=== PATIENT | female | born 1945 | race African-American/Black ===

== ENCOUNTER 2018-03-10 06:03 | Inpatient (IN) | payer MEDICARE, MEDICAID ==
[~2018-03-10] VITALS: Ht 162.6 cm; Wt 95.5 kg
[2018-03-10 06:46] LABS: HEMATOCRIT 44.1 % (37.0-47.0); HEMOGLOBIN 13.5 g/dl (12.0-16.0); IMMATURE GRANULOCYTES 0.7 % (0.0-1.0); MEAN CELL VOLUME 90.9 fL CALC (80.0-100.0); MEAN CORPUSCULAR HGB 27.8 pG CALC (26.0-32.0); MEAN CORPUSCULAR HGB CONC 30.6 g/L CALC (32.0-36.0); NEUT# 6.67 thou/uL (2.00-7.15); RED BLOOD COUNT 4.85 mill/uL (4.20-5.60); RED CELL DISTRI WIDTH 15.5 % (11.5-15.5)
[2018-03-10 06:47] LABS: URINE BILIRUBIN - DIPSTICK NEGATIVE (NEGATIVE); URINE BLOOD DIPSTICK NEGATIVE (NEGATIVE); URINE COLOR YELLOW; URINE GLUCOSE - DIPSTICK NEGATIVE (NEGATIVE); URINE KETONE TRACE mg/dL (NEGATIVE); URINE LEUK ESTERASE TRACE (NEGATIVE); URINE NITRITE - DIPSTICK NEGATIVE (Negative); URINE PROTEIN - DIPSTICK NEGATIVE (NEG-TRACE); URINE UROBILINOGEN - DIPSTICK 0.2 E.U./dL (0.2)
[2018-03-10 06:49] LABS: URINE CLARITY CLEAR
[2018-03-10 06:57] LABS: ALBUMIN 3.6 g/dL (3.2-5.0); ALKALINE PHOSPHATASE 105 u/l (38-126); AMYLASE 249 u/l (30-110); ANION GAP 14 (6-22 (CALC)); BILIRUBIN, TOTAL 0.3 mg/dL (0.0-1.4); BUN 17 mg/dL (8-23); BUN/CREATININE RATIO 20 (12-20 (CALC)); CARBON DIOXIDE 29 mmol/l (22-30); CHLORIDE 106 mmol/l (95-108); CREATININE 0.8 mg/dL (0.5-1.0); GFR > 60 ML/MIN (>=60 (CALC)); GFR FOR AFR.AMER. > 60 ML/MIN (>=60 (CALC)); POTASSIUM 4.4 mmol/l (3.5-5.1); SGOT/AST 12 u/l (9-36); SGPT/ALT 32 u/l (11-66); SODIUM 146 mmol/l (137-146); TOTAL PROTEIN 6.6 g/dL (6.3-8.2)
[2018-03-10 07:08] LABS: LIPASE 2149 u/l (23-300)
[2018-03-10 07:09] LABS: MYOGLOBIN 19 ng/mL (0 - 62)
[2018-03-10] MEDS ORDERED: CELEBREX100 M1 PO (09:10)
[2018-03-10] MEDS ORDERED: SIMVASTATIN20 MG PO (09:10)
[2018-03-10] MEDS ORDERED: METFORMIN500 MG PO (09:11)
[2018-03-10] MEDS ORDERED: MAXZIDE-2537.5 MG/TA PO (09:11)
[2018-03-10] MEDS ORDERED: DOXAZOSIN1 MG PO (09:11)
[2018-03-10] MEDS ORDERED: OMEPRAZOLE10 MG PO (09:12)
[2018-03-10] MEDS ORDERED: DILTIAZEM CD300 MG PO (09:12)
[2018-03-10] MEDS ORDERED: PREDNISONE5 MG PO (09:12)
[2018-03-10] MEDS ORDERED: ADVAIR DISKU IN (09:13)
[2018-03-10] MEDS ORDERED: LOSARTAN POT50 MG PO (09:13)
[2018-03-10] MEDS ORDERED: PROAIR HFA108 MCG/AC IN (09:14)
[2018-03-10 10:31] VITALS: BP 193/93
[2018-03-10 15:22] VITALS: BP 156/80
[2018-03-10 19:35] VITALS: BP 145/79
[2018-03-10 23:52] VITALS: BP 117/67
[2018-03-11] VITALS (7 sets, daily range): BP systolic 129–187; BP diastolic 64–86
[2018-03-11 05:46] LABS: HEMATOCRIT 39.4 % (37.0-47.0); HEMOGLOBIN 11.9 g/dl (12.0-16.0); IMMATURE GRANULOCYTES 0.7 % (0.0-1.0); MEAN CELL VOLUME 92.9 fL CALC (80.0-100.0); MEAN CORPUSCULAR HGB 28.1 pG CALC (26.0-32.0); MEAN CORPUSCULAR HGB CONC 30.2 g/L CALC (32.0-36.0); NEUT# 5.57 thou/uL (2.00-7.15); RED BLOOD COUNT 4.24 mill/uL (4.20-5.60); RED CELL DISTRI WIDTH 15.8 % (11.5-15.5)
[2018-03-11 05:52] LABS: ANION GAP 13 (6-22 (CALC)); BUN 10 mg/dL (8-23); BUN/CREATININE RATIO 15 (12-20 (CALC)); CALCULATED LDLCHOLESTEROL 77 mg/dL (62-129 (CALC)); CARBON DIOXIDE 27 mmol/l (22-30); CHLORIDE 107 mmol/l (95-108); CHOLESTEROL HDL RATIO 2.4 (<4.4 (CALC)); CREATININE 0.7 mg/dL (0.5-1.0); GFR > 60 ML/MIN (>=60 (CALC)); GFR FOR AFR.AMER. > 60 ML/MIN (>=60 (CALC)); HDL CHOLESTEROL 67 mg/dL (>=40); LIPASE 864 u/l (23-300); MAGNESIUM 2.2 mg/dL (1.6-2.3); POTASSIUM 4.9 mmol/l (3.5-5.1); SODIUM 142 mmol/l (137-146); TOTAL CHOLESTEROL 163 mg/dl (0-199); TOTAL TRIGLYCERIDES 90 mg/dl (30-149); VLDL CHOLESTROL 18 mg/dl (0-48 (CALC))
[2018-03-12] VITALS (9 sets, daily range): BP systolic 140–179; BP diastolic 64–110
[2018-03-12 05:06] LABS: HEMATOCRIT 41.6 % (37.0-47.0); HEMOGLOBIN 12.7 g/dl (12.0-16.0); IMMATURE GRANULOCYTES 0.6 % (0.0-1.0); MEAN CELL VOLUME 91.2 fL CALC (80.0-100.0); MEAN CORPUSCULAR HGB 27.9 pG CALC (26.0-32.0); MEAN CORPUSCULAR HGB CONC 30.5 g/L CALC (32.0-36.0); NEUT# 6.38 thou/uL (2.00-7.15); RED BLOOD COUNT 4.56 mill/uL (4.20-5.60); RED CELL DISTRI WIDTH 15.6 % (11.5-15.5)
[2018-03-12 05:16] LABS: ANION GAP 14 (6-22 (CALC)); BUN 8 mg/dL (8-23); BUN/CREATININE RATIO 14 (12-20 (CALC)); CARBON DIOXIDE 25 mmol/l (22-30); CHLORIDE 105 mmol/l (95-108); CREATININE 0.6 mg/dL (0.5-1.0); GFR > 60 ML/MIN (>=60 (CALC)); GFR FOR AFR.AMER. > 60 ML/MIN (>=60 (CALC)); LIPASE 1247 u/l (23-300); POTASSIUM 4.4 mmol/l (3.5-5.1); SODIUM 141 mmol/l (137-146)
[2018-03-13 04:36] VITALS: BP 151/81
[2018-03-13 09:14] VITALS: BP 148/68
[2018-03-13 11:15] VITALS: BP 155/83
[2018-03-13] MEDS ORDERED: SUCRALFATE1 GM/10 ML PO (13:36)
[2018-03-13] MEDS ORDERED: TRAMADOL HCL50 MG PO (13:40)
== END 2018-03-13 16:32 | disposition home or self-care (01) | DRG 440 ==
LOC: ED 06:03 → ED-I 09:00 → ED 09:10 → MS2 09:11
PROVIDERS: Emergency Medicine; Nurse Practitioner Family; ADMIT Internal Medicine; ATTEND Internal Medicine
DX: K85.90 Acute pancreatitis without necrosis or infection, unspecified (principal); J44.9 Chronic obstructive pulmonary disease, unspecified; E11.9 Type 2 diabetes mellitus without complications; I16.0 Hypertensive urgency; I10 Essential (primary) hypertension; J45.909 Unspecified asthma, uncomplicated; K21.9 Gastro-esophageal reflux disease without esophagitis; K59.09 Other constipation; E78.5 Hyperlipidemia, unspecified; E66.9 Obesity, unspecified; Z87.891 Personal history of nicotine dependence; Z79.84 Long term (current) use of oral hypoglycemic drugs; Z68.36 Body mass index [BMI] 36.0-36.9, adult
CPT/HCPCS: Q9967; S0164

== ENCOUNTER 2018-11-23 14:28 | Observation (INO) | payer MEDICARE, MEDICAID ==
[~2018-11-23] VITALS: Ht 162.6 cm; Wt 94.6 kg
[~2018-11-23 14:28] MED LIST: ADVAIR DISKU IN; CELEBREX100 M1 PO; DILTIAZEM CD300 MG PO; DOXAZOSIN1 MG PO; LOSARTAN POT50 MG PO; MAXZIDE-2537.5 MG/TA PO; METFORMIN500 MG PO; OMEPRAZOLE10 MG PO; PREDNISONE5 MG PO; PROAIR HFA108 MCG/AC IN; SIMVASTATIN20 MG PO; SUCRALFATE1 GM/10 ML PO; TRAMADOL HCL50 MG PO
[2018-11-23] MEDS ORDERED: PREDNISONE5 MG PO (14:46)
[2018-11-23] MEDS ORDERED: JANUMET1 TAB PO (14:47)
[2018-11-23] MEDS ORDERED: HYDRALAZINE25 MG PO (14:50)
[2018-11-23 15:30] LABS: HEMATOCRIT 37.9 % (37.0-47.0); HEMOGLOBIN 11.5 g/dl (12.0-16.0); IMMATURE GRANULOCYTES 0.5 % (0.0-5.0); MEAN CORPUSCULAR HGB 27.3 pG CALC (26.0-32.0); MEAN CORPUSCULAR HGB CONC 30.3 g/L CALC (32.0-36.0); NEUT# 7.64 thou/uL (2.00-7.15); RED BLOOD COUNT 4.21 mill/uL (4.20-5.60); RED CELL DISTRI WIDTH 14.6 % (11.5-15.5)
[2018-11-23 15:47] LABS: ALBUMIN 3.8 g/dL (3.2-5.0); ALKALINE PHOSPHATASE 102 u/l (38-126); ANION GAP 12 (6-22 (CALC)); BILIRUBIN, TOTAL 0.3 mg/dL (0.0-1.4); BUN 18 mg/dL (8-23); BUN/CREATININE RATIO 29 (12-20 (CALC)); CARBON DIOXIDE 23 mmol/l (22-30); CHLORIDE 109 mmol/l (95-108); CREATININE 0.6 mg/dL (0.5-1.0); GFR > 60 ML/MIN (>=60 (CALC)); GFR FOR AFR.AMER. > 60 ML/MIN (>=60 (CALC)); LIPASE 186 u/l (23-300); POTASSIUM 4.3 mmol/l (3.5-5.1); SODIUM 141 mmol/l (137-146); TOTAL PROTEIN 6.8 g/dL (6.3-8.2)
[2018-11-23 15:57] LABS: SGOT/AST 33 u/l (9-36)
[2018-11-23 17:19] LABS: URINE BILIRUBIN - DIPSTICK NEGATIVE (NEGATIVE); URINE BLOOD DIPSTICK NEGATIVE (NEGATIVE); URINE COLOR YELLOW; URINE GLUCOSE - DIPSTICK NEGATIVE (NEGATIVE); URINE KETONE NEGATIVE (NEGATIVE); URINE LEUK ESTERASE NEGATIVE (NEGATIVE); URINE NITRITE - DIPSTICK NEGATIVE (Negative); URINE PROTEIN - DIPSTICK NEGATIVE (NEG-TRACE); URINE SPECIFIC GRAVITY 1.015; URINE UROBILINOGEN - DIPSTICK 0.2 E.U./dL (0.2)
[2018-11-23 20:59] VITALS: BP 132/68
[2018-11-24] VITALS (9 sets, daily range): BP systolic 121–173; BP diastolic 72–91
[2018-11-24 02:45] LABS: HEMOGLOBIN 11.3 g/dl (12.0-16.0); IMMATURE GRANULOCYTES 1.1 % (0.0-5.0); MEAN CELL VOLUME 89.2 fL CALC (80.0-100.0); MEAN CORPUSCULAR HGB 27.2 pG CALC (26.0-32.0); MEAN CORPUSCULAR HGB CONC 30.5 g/L CALC (32.0-36.0); NEUT# 5.74 thou/uL (2.00-7.15); RED BLOOD COUNT 4.15 mill/uL (4.20-5.60); RED CELL DISTRI WIDTH 14.6 % (11.5-15.5)
[2018-11-24 03:00] LABS: ALBUMIN 3.4 g/dL (3.2-5.0); ALKALINE PHOSPHATASE 74 u/l (38-126); AMYLASE 65 u/l (30-110); ANION GAP 11 (6-22 (CALC)); BILIRUBIN, TOTAL 0.4 mg/dL (0.0-1.4); BUN 17 mg/dL (8-23); BUN/CREATININE RATIO 26 (12-20 (CALC)); CARBON DIOXIDE 25 mmol/l (22-30); CHLORIDE 110 mmol/l (95-108); CREATININE 0.6 mg/dL (0.5-1.0); GFR > 60 ML/MIN (>=60 (CALC)); GFR FOR AFR.AMER. > 60 ML/MIN (>=60 (CALC)); LIPASE 187 u/l (23-300); POTASSIUM 4.2 mmol/l (3.5-5.1); SGOT/AST 17 u/l (9-36); SODIUM 142 mmol/l (137-146); TOTAL PROTEIN 5.9 g/dL (6.3-8.2)
[2018-11-25 04:30] VITALS: BP 143/81
[2018-11-25 04:51] LABS: HEMATOCRIT 37.1 % (37.0-47.0); HEMOGLOBIN 11.5 g/dl (12.0-16.0); IMMATURE GRANULOCYTES 0.4 % (0.0-5.0); MEAN CELL VOLUME 89.2 fL CALC (80.0-100.0); MEAN CORPUSCULAR HGB 27.6 pG CALC (26.0-32.0); NEUT# 4.88 thou/uL (2.00-7.15); RED BLOOD COUNT 4.16 mill/uL (4.20-5.60); RED CELL DISTRI WIDTH 14.6 % (11.5-15.5)
[2018-11-25 05:16] LABS: ALBUMIN 3.4 g/dL (3.2-5.0); ALKALINE PHOSPHATASE 60 u/l (38-126); ANION GAP 12 (6-22 (CALC)); BILIRUBIN, TOTAL 0.4 mg/dL (0.0-1.4); BUN 16 mg/dL (8-23); BUN/CREATININE RATIO 22 (12-20 (CALC)); CARBON DIOXIDE 26 mmol/l (22-30); CHLORIDE 106 mmol/l (95-108); CREATININE 0.7 mg/dL (0.5-1.0); GFR > 60 ML/MIN (>=60 (CALC)); GFR FOR AFR.AMER. > 60 ML/MIN (>=60 (CALC)); MAGNESIUM 1.9 mg/dL (1.6-2.3); POTASSIUM 4.2 mmol/l (3.5-5.1); SGOT/AST 13 u/l (9-36); SODIUM 140 mmol/l (137-146); TOTAL PROTEIN 5.9 g/dL (6.3-8.2)
[2018-11-25 07:35] VITALS: BP 158/82
[2018-11-25 11:56] VITALS: BP 117/66
[2018-11-25 15:32] VITALS: BP 110/58
== END 2018-11-25 18:05 | disposition home or self-care (01) ==
LOC: ED 14:28 → ED-I 14:45 → ED 14:45 → ED-I 18:06 → ED 18:17 → MS2 18:18
PROVIDERS: Emergency Medicine; ADMIT Internal Medicine Nephrology; ATTEND Internal Medicine Nephrology
DX: I25.118 Atherosclerotic heart disease of native coronary artery with other forms of angina pectoris (principal); E11.9 Type 2 diabetes mellitus without complications; I11.9 Hypertensive heart disease without heart failure; J45.909 Unspecified asthma, uncomplicated; K21.9 Gastro-esophageal reflux disease without esophagitis; M19.90 Unspecified osteoarthritis, unspecified site; E78.5 Hyperlipidemia, unspecified; E66.9 Obesity, unspecified; J44.9 Chronic obstructive pulmonary disease, unspecified; F41.9 Anxiety disorder, unspecified; Z68.35 Body mass index [BMI] 35.0-35.9, adult; Z87.891 Personal history of nicotine dependence; R07.9 Chest pain, unspecified; R06.02 Shortness of breath
CPT/HCPCS: J1650

== ENCOUNTER → 2018-12-19 | Outpatient (REF) | payer MEDICARE, MEDICAID ==
[~2018-12-19] MED LIST changes: +HYDRALAZINE25 MG PO; +JANUMET1 TAB PO
== END | disposition home or self-care (01) ==
LOC: LAB 07:24
PROVIDERS: ATTEND Internal Medicine
DX: E11.22 Type 2 diabetes mellitus with diabetic chronic kidney disease (principal)

== ENCOUNTER 2019-04-05 21:11 | Inpatient (IN) | payer MEDICARE, MEDICAID ==
[~2019-04-05] VITALS: Ht 162.6 cm; Wt 99.0 kg
[2019-04-05 22:43] LABS: IMMATURE GRANULOCYTES 0.6 % (0.0-5.0); MEAN CELL VOLUME 85.1 fL CALC (80.0-100.0); MEAN CORPUSCULAR HGB 25.2 pG CALC (26.0-32.0); MEAN CORPUSCULAR HGB CONC 29.6 g/L CALC (32.0-36.0); NEUT# 6.17 thou/uL (2.00-7.15); RED BLOOD COUNT 4.76 mill/uL (4.20-5.60); RED CELL DISTRI WIDTH 16.5 % (11.5-15.5)
[2019-04-05 23:14] LABS: HEMATOCRIT 40.5 % (37.0-47.0)
[2019-04-05 23:16] LABS: URINE BILIRUBIN - DIPSTICK NEGATIVE (NEGATIVE); URINE BLOOD DIPSTICK NEGATIVE (NEGATIVE); URINE COLOR YELLOW; URINE GLUCOSE - DIPSTICK NEGATIVE (NEGATIVE); URINE KETONE NEGATIVE (NEGATIVE); URINE LEUK ESTERASE NEGATIVE (NEGATIVE); URINE NITRITE - DIPSTICK NEGATIVE (Negative); URINE PROTEIN - DIPSTICK NEGATIVE (NEG-TRACE); URINE UROBILINOGEN - DIPSTICK 0.2 E.U./dL (0.2)
[2019-04-05 23:36] LABS: ALBUMIN 3.8 g/dL (3.2-5.0); AMYLASE 224 u/l (30-110); ANION GAP 13 (6-22 (CALC)); BILIRUBIN, TOTAL 0.3 mg/dL (0.0-1.4); BUN 17 mg/dL (8-23); BUN/CREATININE RATIO 21 (12-20 (CALC)); CARBON DIOXIDE 25 mmol/l (22-30); CHLORIDE 108 mmol/l (95-108); CREATININE 0.8 mg/dL (0.5-1.0); GFR > 60 ML/MIN (>=60 (CALC)); GFR FOR AFR.AMER. > 60 ML/MIN (>=60 (CALC)); LIPASE 1406 u/l (23-300); POTASSIUM 4.2 mmol/l (3.5-5.1); SGOT/AST 19 u/l (9-36); SODIUM 142 mmol/l (137-146); TOTAL PROTEIN 6.8 g/dL (6.3-8.2)
[2019-04-05 23:39] LABS: ALKALINE PHOSPHATASE 185 u/l (38-126)
[2019-04-05 23:47] LABS: MYOGLOBIN 23 ng/mL (0 - 62)
[2019-04-06 01:08] VITALS: BP 169/90
[2019-04-06 04:37] VITALS: BP 127/62
[2019-04-06 05:50] LABS: ALBUMIN 3.1 g/dL (3.2-5.0); ALKALINE PHOSPHATASE 130 u/l (38-126); ANION GAP 11 (6-22 (CALC)); BILIRUBIN, TOTAL 0.3 mg/dL (0.0-1.4); BUN 16 mg/dL (8-23); BUN/CREATININE RATIO 24 (12-20 (CALC)); CARBON DIOXIDE 26 mmol/l (22-30); CHLORIDE 108 mmol/l (95-108); CREATININE 0.7 mg/dL (0.5-1.0); GFR > 60 ML/MIN (>=60 (CALC)); GFR FOR AFR.AMER. > 60 ML/MIN (>=60 (CALC)); POTASSIUM 4.6 mmol/l (3.5-5.1); SGOT/AST 17 u/l (9-36); SODIUM 140 mmol/l (137-146); TOTAL PROTEIN 5.9 g/dL (6.3-8.2)
[2019-04-06 08:00] VITALS: BP 129/66
[2019-04-06 15:00] VITALS: BP 159/84
[2019-04-06 18:11] VITALS: BP 176/85
[2019-04-06 19:30] VITALS: BP 159/87
[2019-04-07] VITALS (9 sets, daily range): BP systolic 130–191; BP diastolic 80–93
[2019-04-07 05:43] LABS: HEMATOCRIT 42.1 % (37.0-47.0); HEMOGLOBIN 12.5 g/dl (12.0-16.0); IMMATURE GRANULOCYTES 0.3 % (0.0-5.0); MEAN CELL VOLUME 86.1 fL CALC (80.0-100.0); MEAN CORPUSCULAR HGB 25.6 pG CALC (26.0-32.0); MEAN CORPUSCULAR HGB CONC 29.7 g/L CALC (32.0-36.0); NEUT# 5.04 thou/uL (2.00-7.15); RED BLOOD COUNT 4.89 mill/uL (4.20-5.60); RED CELL DISTRI WIDTH 16.4 % (11.5-15.5)
[2019-04-07 06:12] LABS: ALBUMIN 3.4 g/dL (3.2-5.0); ALKALINE PHOSPHATASE 94 u/l (38-126); AMYLASE 110 u/l (30-110); ANION GAP 11 (6-22 (CALC)); BILIRUBIN, TOTAL 0.4 mg/dL (0.0-1.4); BUN 12 mg/dL (8-23); BUN/CREATININE RATIO 17 (12-20 (CALC)); CARBON DIOXIDE 31 mmol/l (22-30); CHLORIDE 105 mmol/l (95-108); CREATININE 0.7 mg/dL (0.5-1.0); GFR > 60 ML/MIN (>=60 (CALC)); GFR FOR AFR.AMER. > 60 ML/MIN (>=60 (CALC)); LIPASE 440 u/l (23-300); POTASSIUM 4.9 mmol/l (3.5-5.1); SGOT/AST 17 u/l (9-36); SODIUM 141 mmol/l (137-146)
[2019-04-08 00:32] VITALS: BP 168/75
[2019-04-08 02:29] VITALS: BP 143/61
[2019-04-08 05:01] VITALS: BP 133/67
[2019-04-08 05:23] LABS: HEMATOCRIT 42.7 % (37.0-47.0); HEMOGLOBIN 12.9 g/dl (12.0-16.0); IMMATURE GRANULOCYTES 0.5 % (0.0-5.0); MEAN CELL VOLUME 84.1 fL CALC (80.0-100.0); MEAN CORPUSCULAR HGB 25.4 pG CALC (26.0-32.0); MEAN CORPUSCULAR HGB CONC 30.2 g/L CALC (32.0-36.0); NEUT# 6.05 thou/uL (2.00-7.15); RED BLOOD COUNT 5.08 mill/uL (4.20-5.60); RED CELL DISTRI WIDTH 16.4 % (11.5-15.5)
[2019-04-08 05:25] LABS: ALBUMIN 3.5 g/dL (3.2-5.0); ALKALINE PHOSPHATASE 96 u/l (38-126); AMYLASE 102 u/l (30-110); ANION GAP 12 (6-22 (CALC)); BUN 11 mg/dL (8-23); BUN/CREATININE RATIO 19 (12-20 (CALC)); CARBON DIOXIDE 29 mmol/l (22-30); CHLORIDE 103 mmol/l (95-108); CREATININE 0.6 mg/dL (0.5-1.0); GFR > 60 ML/MIN (>=60 (CALC)); GFR FOR AFR.AMER. > 60 ML/MIN (>=60 (CALC)); LIPASE 450 u/l (23-300); MAGNESIUM 1.9 mg/dL (1.6-2.3); POTASSIUM 4.4 mmol/l (3.5-5.1); SGOT/AST 18 u/l (9-36); SODIUM 140 mmol/l (137-146); TOTAL PROTEIN 6.3 g/dL (6.3-8.2)
[2019-04-08 05:26] LABS: BILIRUBIN, TOTAL 0.6 mg/dL (0.0-1.4)
[2019-04-08 07:53] VITALS: BP 136/79
[2019-04-08 11:00] VITALS: BP 161/79
[2019-04-08] MEDS ORDERED: DOXYCYC MONO100 M2 PO (13:10)
[2019-04-08] MEDS ORDERED: METFORMIN500 MG PO (13:14)
== END 2019-04-08 18:24 | disposition home or self-care (01) | DRG 439 ==
LOC: ED 21:11 → ED-I 23:55 → ED 04-06 00:03 → MS2 04-06 00:04
PROVIDERS: Emergency Medicine; Internal Medicine Nephrology; ADMIT Internal Medicine; ATTEND Internal Medicine
DX: K85.30 Drug induced acute pancreatitis without necrosis or infection (principal); J44.0 Chronic obstructive pulmonary disease with (acute) lower respiratory infection; J20.9 Acute bronchitis, unspecified; T38.3X5A Adverse effect of insulin and oral hypoglycemic [antidiabetic] drugs, initial encounter; I10 Essential (primary) hypertension; E11.9 Type 2 diabetes mellitus without complications; E78.5 Hyperlipidemia, unspecified; M19.90 Unspecified osteoarthritis, unspecified site; K59.00 Constipation, unspecified; F41.9 Anxiety disorder, unspecified; K21.9 Gastro-esophageal reflux disease without esophagitis; R74.8 Abnormal levels of other serum enzymes; Z79.84 Long term (current) use of oral hypoglycemic drugs; Z79.899 Other long term (current) drug therapy; Z87.891 Personal history of nicotine dependence; E11.22 Type 2 diabetes mellitus with diabetic chronic kidney disease
CPT/HCPCS: J1650

== ENCOUNTER 2019-08-21 10:09 | Observation (INO) | payer MEDICARE, MEDICAID ==
[~2019-08-21] VITALS: Ht 162.6 cm; Wt 96.2 kg
[~2019-08-21 10:09] MED LIST changes: +DOXYCYC MONO100 M2 PO
[2019-08-21 11:01] LABS: HEMATOCRIT 42.3 % (37.0-47.0); HEMOGLOBIN 12.8 g/dl (12.0-16.0); IMMATURE GRANULOCYTES 0.4 % (0.0-5.0); MEAN CELL VOLUME 85.6 fL CALC (80.0-100.0); MEAN CORPUSCULAR HGB 25.9 pG CALC (26.0-32.0); MEAN CORPUSCULAR HGB CONC 30.3 g/L CALC (32.0-36.0); NEUT# 7.04 thou/uL (2.00-7.15); RED BLOOD COUNT 4.94 mill/uL (4.20-5.60); RED CELL DISTRI WIDTH 16.5 % (11.5-15.5)
[2019-08-21 11:39] LABS: ALBUMIN 3.7 g/dL (3.2-5.0); ALKALINE PHOSPHATASE 127 u/l (38-126); AMYLASE 79 u/l (30-110); ANION GAP 12 (6-22 (CALC)); BILIRUBIN, TOTAL 0.3 mg/dL (0.0-1.4); BUN 17 mg/dL (8-23); BUN/CREATININE RATIO 24 (12-20 (CALC)); CARBON DIOXIDE 24 mmol/l (22-30); CHLORIDE 108 mmol/l (95-108); CREATININE 0.7 mg/dL (0.5-1.0); GFR > 60 ML/MIN (>=60 (CALC)); GFR FOR AFR.AMER. > 60 ML/MIN (>=60 (CALC)); LIPASE 145 u/l (23-300); POTASSIUM 4.2 mmol/l (3.5-5.1); SODIUM 141 mmol/l (137-146); TOTAL PROTEIN 6.8 g/dL (6.3-8.2)
[2019-08-21 11:40] LABS: URINE BILIRUBIN - DIPSTICK NEGATIVE (NEGATIVE); URINE BLOOD DIPSTICK NEGATIVE (NEGATIVE); URINE COLOR YELLOW; URINE GLUCOSE - DIPSTICK NEGATIVE (NEGATIVE); URINE KETONE NEGATIVE (NEGATIVE); URINE LEUK ESTERASE TRACE (NEGATIVE); URINE NITRITE - DIPSTICK NEGATIVE (Negative); URINE PH 5.5 (4.5-8.0); URINE PROTEIN - DIPSTICK NEGATIVE (NEG-TRACE); URINE UROBILINOGEN - DIPSTICK 0.2 E.U./dL (0.2)
[2019-08-21 11:41] LABS: SGOT/AST 41 u/l (9-36)
[2019-08-21 11:51] LABS: MYOGLOBIN 21 ng/mL (0 - 62)
[2019-08-21 12:55] VITALS: BP 191/95
[2019-08-21 13:35] VITALS: BP 191/95
[2019-08-21 14:40] VITALS: BP 161/72
[2019-08-21] MEDS ORDERED: METFORMIN500 MG PO (16:53)
[2019-08-21] MEDS ORDERED: CARDIZEM CD240 MG PO (18:20)
[2019-08-21 18:42] VITALS: BP 150/83
[2019-08-22] VITALS: BP 143/86
[2019-08-22 04:35] VITALS: BP 163/78
[2019-08-22 06:32] LABS: CHOLESTEROL HDL RATIO 2.2 (<4.4 (CALC))
[2019-08-22 07:54] VITALS: BP 166/75
[2019-08-22 11:03] VITALS: BP 172/77
[2019-08-22 14:35] VITALS: BP 156/74
[2019-08-22] MEDS ORDERED: IBUPROFEN600 MG PO (15:32)
== END 2019-08-22 16:17 | disposition home or self-care (01) ==
LOC: ED 10:09 → ED-I 12:10 → ED 12:24 → MS2 12:25
PROVIDERS: Emergency Medicine; Nurse Practitioner Family; ADMIT Internal Medicine; ATTEND Internal Medicine
DX: M94.0 Chondrocostal junction syndrome [Tietze] (principal); I10 Essential (primary) hypertension; E11.9 Type 2 diabetes mellitus without complications; M19.90 Unspecified osteoarthritis, unspecified site; J43.9 Emphysema, unspecified; E78.5 Hyperlipidemia, unspecified; Z79.52 Long term (current) use of systemic steroids; Z87.891 Personal history of nicotine dependence; Z79.84 Long term (current) use of oral hypoglycemic drugs; R07.9 Chest pain, unspecified

== ENCOUNTER 2019-12-05 05:18 | Inpatient (IN) | payer MEDICARE, MEDICAID ==
[~2019-12-05] VITALS: Ht 162.6 cm; Wt 98.4 kg
[~2019-12-05 05:18] MED LIST changes: +CARDIZEM CD240 MG PO; +IBUPROFEN600 MG PO
[2019-12-05 06:23] LABS: HEMATOCRIT 43.6 % (37.0-47.0); IMMATURE GRANULOCYTES 0.4 % (0.0-5.0); MEAN CORPUSCULAR HGB 25.3 pG CALC (26.0-32.0); MEAN CORPUSCULAR HGB CONC 29.8 g/L CALC (32.0-36.0); NEUT# 5.38 thou/uL (2.00-7.15); RED BLOOD COUNT 5.13 mill/uL (4.20-5.60); RED CELL DISTRI WIDTH 17.3 % (11.5-15.5)
[2019-12-05 06:39] LABS: ALBUMIN 3.7 g/dL (3.2-5.0); ALKALINE PHOSPHATASE 119 u/l (38-126); AMYLASE 230 u/l (30-110); ANION GAP 11 (6-22 (CALC)); BILIRUBIN, TOTAL 0.4 mg/dL (0.0-1.4); BUN 17 mg/dL (8-23); BUN/CREATININE RATIO 23 (12-20 (CALC)); CARBON DIOXIDE 25 mmol/l (22-30); CHLORIDE 109 mmol/l (95-108); CREATININE 0.7 mg/dL (0.5-1.0); GFR > 60 ML/MIN (>=60 (CALC)); GFR FOR AFR.AMER. > 60 ML/MIN (>=60 (CALC)); LIPASE 1529 u/l (23-300); POTASSIUM 4.1 mmol/l (3.5-5.1); SGOT/AST 28 u/l (9-36); SODIUM 141 mmol/l (137-146); TOTAL PROTEIN 6.9 g/dL (6.3-8.2)
[2019-12-05] MEDS ORDERED: ADULT ASPIRIN R81 MG PO (07:20)
[2019-12-05] MEDS ORDERED: ATORVASTATIN CA10 MG PO (07:20)
[2019-12-05] MEDS ORDERED: LORATADINE10 M1 PO (07:22)
[2019-12-05] MEDS ORDERED: ALLERGY NA50 MCG/ACT NAB (07:27)
[2019-12-05] MEDS ORDERED: ALBUTEROL SUL0.083 % IN (08:20)
[2019-12-05 08:50] VITALS: BP 162/85
[2019-12-05 13:57] LABS: URINE BILIRUBIN - DIPSTICK NEGATIVE (NEGATIVE); URINE BLOOD DIPSTICK NEGATIVE (NEGATIVE); URINE COLOR YELLOW; URINE GLUCOSE - DIPSTICK NEGATIVE (NEGATIVE); URINE KETONE NEGATIVE (NEGATIVE); URINE LEUK ESTERASE TRACE (NEGATIVE); URINE PH 5.5 (4.5-8.0); URINE PROTEIN - DIPSTICK NEGATIVE (NEG-TRACE); URINE UROBILINOGEN - DIPSTICK 0.2 E.U./dL (0.2)
[2019-12-05 14:08] LABS: AMYLASE 160 u/l (30-110); LIPASE 944 u/l (23-300)
[2019-12-05 14:32] LABS: URINE NITRITE - DIPSTICK POSITIVE (Negative)
[2019-12-05 14:40] LABS: URINE BACTERIA MANY hpf; URINE SQUAMOUS EPITHELIAL CELL FEW EPI/hpf (0-FEW)
[2019-12-05 16:11] VITALS: BP 162/93
[2019-12-05 19:15] VITALS: BP 160/68
[2019-12-06 03:50] VITALS: BP 152/80
[2019-12-06 08:45] VITALS: BP 165/74
[2019-12-06 14:18] LABS: ANION GAP 10 (6-22 (CALC)); BUN 8 mg/dL (8-23); BUN/CREATININE RATIO 15 (12-20 (CALC)); CARBON DIOXIDE 22 mmol/l (22-30); CHLORIDE 111 mmol/l (95-108); CREATININE 0.5 mg/dL (0.5-1.0); GFR > 60 ML/MIN (>=60 (CALC)); GFR FOR AFR.AMER. > 60 ML/MIN (>=60 (CALC)); LIPASE 646 u/l (23-300); POTASSIUM 4.9 mmol/l (3.5-5.1); SODIUM 138 mmol/l (137-146)
[2019-12-06 16:00] VITALS: BP 158/91
[2019-12-06 18:50] VITALS: BP 179/88
[2019-12-06 22:34] VITALS: BP 183/97
[2019-12-06 23:20] VITALS: BP 183/97
[2019-12-07] VITALS (7 sets, daily range): BP systolic 154–195; BP diastolic 58–89
[2019-12-07 05:41] LABS: HEMATOCRIT 42.7 % (37.0-47.0); MEAN CELL VOLUME 84.7 fL CALC (80.0-100.0); MEAN CORPUSCULAR HGB 25.8 pG CALC (26.0-32.0); MEAN CORPUSCULAR HGB CONC 30.4 g/L CALC (32.0-36.0); RED BLOOD COUNT 5.04 mill/uL (4.20-5.60); RED CELL DISTRI WIDTH 17.5 % (11.5-15.5)
[2019-12-07 05:54] LABS: ANION GAP 14 (6-22 (CALC)); BUN 6 mg/dL (8-23); BUN/CREATININE RATIO 12 (12-20 (CALC)); CARBON DIOXIDE 22 mmol/l (22-30); CHLORIDE 105 mmol/l (95-108); CREATININE 0.5 mg/dL (0.5-1.0); GFR > 60 ML/MIN (>=60 (CALC)); GFR FOR AFR.AMER. > 60 ML/MIN (>=60 (CALC)); MAGNESIUM 1.8 mg/dL (1.6-2.3); POTASSIUM 4.3 mmol/l (3.5-5.1); SODIUM 137 mmol/l (137-146)
[2019-12-08 04:36] VITALS: BP 104/72
[2019-12-08 08:00] VITALS: BP 139/83
[2019-12-08] MEDS ORDERED: ZITHROMAX250 MG PO (12:08)
[2019-12-08] MEDS ORDERED: KEFLEX500 MG PO (12:11)
== END 2019-12-08 18:33 | disposition home or self-care (01) | DRG 637 ==
LOC: ED 05:18 → ED-I 07:03 → ED 07:14 → MS2 07:15
PROVIDERS: Family Medicine; Nurse Practitioner Family; ADMIT Internal Medicine; ATTEND Internal Medicine
PROC: 3E02340 Introduction of Influenza Vaccine into Muscle, Percutaneous Approach (ICD-10-PCS; principal; 2019-12-06)
PROC: 3E0234Z Introduction of Serum, Toxoid and Vaccine into Muscle, Percutaneous Approach (ICD-10-PCS; 2019-12-06)
DX: E11.69 Type 2 diabetes mellitus with other specified complication (principal); K85.90 Acute pancreatitis without necrosis or infection, unspecified; K85.80 Other acute pancreatitis without necrosis or infection; N39.0 Urinary tract infection, site not specified; J44.0 Chronic obstructive pulmonary disease with (acute) lower respiratory infection; J20.9 Acute bronchitis, unspecified; I10 Essential (primary) hypertension; E78.5 Hyperlipidemia, unspecified; R32 Unspecified urinary incontinence; K21.9 Gastro-esophageal reflux disease without esophagitis; B96.20 Unspecified Escherichia coli [E. coli] as the cause of diseases classified elsewhere; Z79.84 Long term (current) use of oral hypoglycemic drugs; Z23 Encounter for immunization; Z87.891 Personal history of nicotine dependence
CPT/HCPCS: G0378; Q9967; S0164

== ENCOUNTER 2019-12-19 14:37 | Inpatient (IN) | payer MEDICARE, MEDICAID ==
[~2019-12-19] VITALS: Ht 162.6 cm; Wt 96.0 kg
[~2019-12-19 14:37] MED LIST changes: +ADULT ASPIRIN R81 MG PO; +ALBUTEROL SUL0.083 % IN; +ALLERGY NA50 MCG/ACT NAB; +ATORVASTATIN CA10 MG PO; +KEFLEX500 MG PO; +LORATADINE10 M1 PO; +ZITHROMAX250 MG PO
--- NOTE | 2019-12-19 14:44 | NUR ---
PT TO ROOM VIA WHEELCHAIR FOR BEDSIDE TRIAGE.
[2019-12-19 15:35] LABS: HEMATOCRIT 44.6 % (37.0-47.0); HEMOGLOBIN 13.5 g/dl (12.0-16.0); IMMATURE GRANULOCYTES 0.4 % (0.0-5.0); MEAN CELL VOLUME 84.6 fL CALC (80.0-100.0); MEAN CORPUSCULAR HGB 25.6 pG CALC (26.0-32.0); MEAN CORPUSCULAR HGB CONC 30.3 g/L CALC (32.0-36.0); NEUT# 5.52 thou/uL (2.00-7.15); RED BLOOD COUNT 5.27 mill/uL (4.20-5.60); RED CELL DISTRI WIDTH 17.4 % (11.5-15.5)
[2019-12-19 15:46] LABS: ALKALINE PHOSPHATASE 100 u/l (38-126); AMYLASE 182 u/l (30-110); BUN 16 mg/dL (8-23); BUN/CREATININE RATIO 22 (12-20 (CALC)); CHLORIDE 105 mmol/l (95-108); CREATININE 0.7 mg/dL (0.5-1.0); GFR > 60 ML/MIN (>=60 (CALC)); GFR FOR AFR.AMER. > 60 ML/MIN (>=60 (CALC)); LIPASE 1823 u/l (23-300); POTASSIUM 4.6 mmol/l (3.5-5.1); SGOT/AST 31 u/l (9-36); SODIUM 139 mmol/l (137-146); TOTAL PROTEIN 7.4 g/dL (6.3-8.2)
--- NOTE | 2019-12-19 15:46 | NUR ---
AFTER MULTIPLE ATTEMPTS OF IV, IV ESTABLISHED AND PAIN MEDICATIONS GIVEN.
[2019-12-19 16:10] LABS: ANION GAP 12 (6-22 (CALC)); BILIRUBIN, TOTAL 0.8 mg/dL (0.0-1.4); CARBON DIOXIDE 27 mmol/l (22-30)
--- NOTE | 2019-12-19 16:51 | NUR ---
PT BACK AFROM XRAY, W/C TO RESTROOM AND URINE SPECIMEN OBTAINED. PT STATES PAIN IS ALL GONE AND THINKS IF SHE JUST WENT HOME WITH PAIN MEDICATIONS SHE WOULD BE FINE. NOTIFIED.
[2019-12-19 17:26] LABS: URINE BILIRUBIN - DIPSTICK SMALL (NEGATIVE); URINE BLOOD DIPSTICK NEGATIVE (NEGATIVE); URINE COLOR YELLOW; URINE GLUCOSE - DIPSTICK NEGATIVE (NEGATIVE); URINE KETONE NEGATIVE (NEGATIVE); URINE LEUK ESTERASE NEGATIVE (NEGATIVE); URINE NITRITE - DIPSTICK NEGATIVE (Negative); URINE PH 5.5 (4.5-8.0); URINE PROTEIN - DIPSTICK NEGATIVE (NEG-TRACE); URINE SPECIFIC GRAVITY >=1.030; URINE UROBILINOGEN - DIPSTICK 0.2 E.U./dL (0.2)
--- NOTE | 2019-12-19 17:56 | NUR ---
PT WAITING FOR ACCEPTING PHYSICIAN ORDER BEFORE ABLE TO MOVE PT TO FLOOR. PT RESTING QUIETLY. NO PAIN AT THIS TIME
[2019-12-19 18:21] VITALS: BP 121/67; BP 192/81
--- NOTE | 2019-12-19 18:25 | NUR ---
REPORT REC FROM CADENCE SANDOVAL
--- NOTE | 2019-12-19 18:42 | NUR ---
PT TAKEN TO MED SURG PER W/C WITH REPORT GIVEN TO SANTY FOR CONTINUATION OF CARE
--- NOTE | 2019-12-19 19:00 | NUR ---
RECEIVED REPORT FROM NURSE DEMETRIA, PATIENT ARRIVED TO FLOOR [id number], CURRENTLY RESTING IN BED EVEN UNLABORED BREATHING CALL LIGHT AT REACH.
[2019-12-19 19:54] VITALS: BP 180/79
--- NOTE | 2019-12-19 20:00 | NUR ---
PATIENT ALERT ORIENTED ABLE TO MAKE NEEDS KNOWN, C/O EPIGASTRIC PAIN AND PAIN ON RT ABDOMEN, CALLED DR. CHAVEZ WITH ORDERS MADE.
[2019-12-19 23:05] VITALS: BP 156/84
[2019-12-20] VITALS (7 sets, daily range): BP systolic 139–170; BP diastolic 70–81
--- NOTE | 2019-12-20 | NUR ---
PATIENT APPEARS TO BE SLEEPING WITH EYES CLOSED NO DISCOMFORTS NOTED AT THIS TIME.
--- NOTE | 2019-12-20 04:30 | NUR ---
PATIENT RESTING IN BED STATED PAIN RELIEF, NO DISCOMFORTS NOTED AT THIS TIME, CALL LIGHT AT REACH.
[2019-12-20 07:09] LABS: AMYLASE 143 u/l (30-110); LIPASE 1126 u/l (23-300)
--- NOTE | 2019-12-20 07:40 | NUR ---
REPORT RECEIVED FROM JAIME GAMBOA. PT SITTING UP IN BEDSIDE CHAIR; ALERT AND ORIENTED. C/O 8/10 ABDOMINAL PAIN. RESPIRATIONS EVEN AND UNLABORED ON ROOM AIR. LUNGS CLEAR. IV FLUIDS INFUSING WITHOUT DIFFICULTY; IV SITE APPEARS HEALTY. PLAN OF CARE REVIEWED. PT ENCOURAGEED TO VERBALIZE CONCERNS. STATES UNDERSTANDING. SAFETY MEASURES IN PLACE. CALL LIGHT WITHIN REACH.
--- NOTE | 2019-12-20 09:07 | NUR ---
DR. LEDESMA AT BEDSIDE.
--- NOTE | 2019-12-20 10:13 | NUR ---
CONSENT OBTAINED FOR INCISION AND DRAINAGE TO LEFT AXILLA. MEDS GIVEN; VANCO INFUSING AT THIS TIME.
--- NOTE | 2019-12-20 12:31 | NUR ---
MORPHINE GIVEN FOR PAIN.
--- NOTE | 2019-12-20 12:52 | NUR ---
DR. SILVEIRA AT BEDSIDE FOR EVAL AND DISCUSS POC.
--- NOTE | 2019-12-20 16:00 | NUR ---
PT RESTING IN BED SEMI FOWLERS WITH EYES CLOSED AND NO SIGNS OF DISTRESS. INDPENDENT TO BSC. SHOWER AND LINEN CHANGE COMPLETED. CALL LIGHT WITHIN REACH.
--- NOTE | 2019-12-20 17:30 | NUR ---
SITTING UP IN BEDSIDE CHAIR; PT USED CALL LIGHT TO REQUEST PAIN MEDICATION FOR 9/10 ABDOMINAL PAIN. MORPHINE GIVEN AT THIS TIME. NO OTHER REQUESTS OR CONCERNS. SAFETY MEASURES IN PLACE.
--- NOTE | 2019-12-20 19:00 | NUR ---
RECEIVED REPORT FROM NURSE JAY PATIENT RESTING IN BED, WATCHING TV, NO DISCOMFORTS NOTED AT THIS TIME, CALL LIGHTA T REACH.
--- NOTE | 2019-12-20 20:10 | NUR ---
NOTIFIED DR. LEDESMA ABOUT PATIENT BP 169/70, WITH ORDERS MADE.
--- NOTE | 2019-12-20 21:00 | NUR ---
PATIENT ALERT ORINETED ABLE TO MAKE NEEDS KNONW, WITH ONGOING IV NS INFUSING WELL TO RT HAND @ 100CC/HR, LBM 12/18, REINFORCED ON NPO STATUS POST MIDNIGHT.
[2019-12-21] VITALS (11 sets, daily range): BP systolic 135–167; BP diastolic 58–79
--- NOTE | 2019-12-21 | NUR ---
EDUCATED PATIENT ON NPO STATUS.
--- NOTE | 2019-12-21 04:51 | NUR ---
BP ELEVATED 161/75, AND SATED IN PAIN, MORPHINE GIVEN AND WILL REPOEAT BP.
[2019-12-21 05:25] LABS: HEMATOCRIT 40.4 % (37.0-47.0); HEMOGLOBIN 11.8 g/dl (12.0-16.0); MEAN CELL VOLUME 87.3 fL CALC (80.0-100.0); MEAN CORPUSCULAR HGB 25.5 pG CALC (26.0-32.0); MEAN CORPUSCULAR HGB CONC 29.2 g/L CALC (32.0-36.0); RED BLOOD COUNT 4.63 mill/uL (4.20-5.60); RED CELL DISTRI WIDTH 17.2 % (11.5-15.5)
[2019-12-21 06:00] LABS: ALBUMIN 3.2 g/dL (3.2-5.0); ALKALINE PHOSPHATASE 89 u/l (38-126); ANION GAP 9 (6-22 (CALC)); BILIRUBIN, TOTAL 0.5 mg/dL (0.0-1.4); BUN 8 mg/dL (8-23); BUN/CREATININE RATIO 14 (12-20 (CALC)); CARBON DIOXIDE 24 mmol/l (22-30); CHLORIDE 111 mmol/l (95-108); CREATININE 0.6 mg/dL (0.5-1.0); GFR > 60 ML/MIN (>=60 (CALC)); GFR FOR AFR.AMER. > 60 ML/MIN (>=60 (CALC)); LIPASE 1032 u/l (23-300); POTASSIUM 4.1 mmol/l (3.5-5.1); SGOT/AST 23 u/l (9-36); SODIUM 140 mmol/l (137-146); TOTAL PROTEIN 6.1 g/dL (6.3-8.2)
--- NOTE | 2019-12-21 07:00 | NUR ---
SHIFT CHANGE REPORT, PT AWAKE ALERT AND ORIENTED, C/O ABD PAIN, TEDS APPLIED AFTER EDUCATION GIVEN REASON FOR TEDS, IVF INFUSING, CALL HERNÁNDEZ IN REACH, WILL CONTINUE TO MONITOR AND ADDRESS CONCERNS.
--- NOTE | 2019-12-21 10:14 | NUR ---
OR STAFF HERE AT THIS TIME RECEIVING PT AND TRANSFERRING HER VIA BED OFF UNIT TO OR.
--- NOTE | 2019-12-21 13:30 | NUR ---
TRANSPORTED BACK FROM SURGERY VIA STRETCHER BY ED STAFF AND TRANSFERRED TO BED WITH ASSIST OF 3 STAFF, GROGGY BUT ORIENTED, DENIED PAIN AT THAT TIME. PUNCTURE X 4 TO ABDOMEN WELL APPROXIMATED WITH STERI GLUE. IVF INFUSING, SCD PLACED, VITAL SIGNS BEING MONITORED, SPOUSE AT BEDSIDE, CALL HERNÁNDEZ IN REACH, WILL CONTINUE TO MONITOR.
--- NOTE | 2019-12-21 20:49 | NUR ---
ASSESSMENT COMPLETED. NO RESP. DISTRESS NOTED; X4 PUNCTURE INCISIONS NOTED TO ABD PT. IS POST OP LAPRISCOPIC CHOLECYSTECTOMY. PROVIDED WITH INCENTIVE SPIROMETER AND EDUCATED, PT. ABLE TO PULL 750 AND GOAL SET TO 1000. IV SITE PATENT AND ORDERED IVF INFUSING WELL. PT. C/O ABD PAIN AND MEDICATED WITH PERCOCET, WILL REASSESS. SNACK PROVIDED WELL. PT. REPORTS PASSING GAS BUT STILL NO BM POST SURGERY. PT. REPORTS TO NURSE SHE WILL NOT TAKE INSULIN EVEN IF BS REQUIRES IT, DOCUMENTED SO IN EMAR. ENCOURAGED TO CALL FOR ANY NEEDS. CALL LIGHT IS IN REACH.
--- NOTE | 2019-12-21 22:55 | NUR ---
RESTING IN BED WITH EYES CLOSED; RESP. EVEN AND UNLABORED. CALL LIGHT IS IN REACH.
[2019-12-22 00:02] VITALS: BP 130/58
--- NOTE | 2019-12-22 00:24 | NUR ---
PT. RESTING IN BED WITH EYES CLOSED AND SNORING. NO DISTRESS NOTED;RESP. EVEN AND UNLABORED.
--- NOTE | 2019-12-22 03:05 | NUR ---
RESTING IN BED WITH EYES CLOSED; NO DISTRESS NOTED; RESP. EVEN AND UNLABORED. CALL LIGHT IS IN REACH.
[2019-12-22 04:29] VITALS: BP 152/53
--- NOTE | 2019-12-22 05:19 | NUR ---
PT. REPORTS ABD PAIN AND STILL NO BM, MEDICATED WITH ORDERED PRN PERCOCET AND PROVIDED WITH WARM PRUNE JUICE. ENCOURAGED TO CALL FOR ANY FURTHER NEEDS.
[2019-12-22 05:39] LABS: HEMATOCRIT 42.2 % (37.0-47.0); HEMOGLOBIN 11.9 g/dl (12.0-16.0); IMMATURE GRANULOCYTES 0.4 % (0.0-5.0); MEAN CELL VOLUME 89.4 fL CALC (80.0-100.0); MEAN CORPUSCULAR HGB 25.2 pG CALC (26.0-32.0); MEAN CORPUSCULAR HGB CONC 28.2 g/L CALC (32.0-36.0); RED BLOOD COUNT 4.72 mill/uL (4.20-5.60); RED CELL DISTRI WIDTH 17.7 % (11.5-15.5)
--- NOTE | 2019-12-22 05:51 | NUR ---
IVF DC'D AND IV SITE SL AND FLUSHED WITH NS PER ORDER PT. IS TOLERATING PO.
[2019-12-22 06:12] LABS: AMYLASE 84 u/l (30-110); ANION GAP 12 (6-22 (CALC)); BUN 7 mg/dL (8-23); BUN/CREATININE RATIO 10 (12-20 (CALC)); CARBON DIOXIDE 20 mmol/l (22-30); CHLORIDE 111 mmol/l (95-108); CREATININE 0.7 mg/dL (0.5-1.0); GFR > 60 ML/MIN (>=60 (CALC)); GFR FOR AFR.AMER. > 60 ML/MIN (>=60 (CALC)); LIPASE 337 u/l (23-300); MAGNESIUM 1.9 mg/dL (1.6-2.3); POTASSIUM 4.2 mmol/l (3.5-5.1); SODIUM 140 mmol/l (137-146)
--- NOTE | 2019-12-22 07:11 | NUR ---
SHIFT CHANGE REPORT, PT SLEEPING BUT AWAKEN TO VERBAL STIMILI, NO C/O DISCOMFORT, CALL HERNÁNDEZ IN REACH.
[2019-12-22 07:47] VITALS: BP 172/70
[2019-12-22] MEDS ORDERED: LORTAB5 PO (09:10)
--- NOTE | 2019-12-22 11:24 | NUR ---
DR LEDESMA ROUNDED, DISCUSSED D/C PLANS, PT STATED UNDRESTANDING.
[2019-12-22 12:00] VITALS: BP 149/69
--- NOTE | 2019-12-22 13:04 | NUR ---
Discharge instructions given. Patient verbalizes understanding of same. Discharged in good condition via Wheelchair to Home with spouse. All belongings sent with pt.
== END 2019-12-22 12:55 | disposition home or self-care (01) | DRG 419 ==
LOC: ED 14:37 → ED-I 17:12 → ED 17:18 → MS2 17:19
PROVIDERS: Nurse Practitioner Family; ADMIT Internal Medicine; ATTEND Internal Medicine
PROC: 0FT44ZZ Resection of Gallbladder, Percutaneous Endoscopic Approach (ICD-10-PCS; principal; 2019-12-21)
PROC: BF101ZZ Fluoroscopy of Bile Ducts using Low Osmolar Contrast (ICD-10-PCS; 2019-12-21)
DX: K85.10 Biliary acute pancreatitis without necrosis or infection (principal); K80.20 Calculus of gallbladder without cholecystitis without obstruction; I10 Essential (primary) hypertension; E11.9 Type 2 diabetes mellitus without complications; J44.9 Chronic obstructive pulmonary disease, unspecified; E78.5 Hyperlipidemia, unspecified; M19.90 Unspecified osteoarthritis, unspecified site; K21.9 Gastro-esophageal reflux disease without esophagitis; Z87.891 Personal history of nicotine dependence; Z79.84 Long term (current) use of oral hypoglycemic drugs
CPT/HCPCS: G0378; J1650; J2710; Q9967